=== PATIENT | female | born 1965 | race Caucasian/White ===

== ENCOUNTER 2020-10-06 13:40 | Emergency (ER) | payer OTHER ==
[~2020-10-06] VITALS: Ht 154.9 cm; Wt 60.0 kg
[2020-10-06 13:40] VITALS: BP 107/72
--- NOTE | 2020-10-06 14:26 | RAD ---
XR HAND_RIGHT 3 VIEWS 10/06/2020 2:10 PM INDICATION: Dog bite to the right and COMPARISON: None available. TECHNIQUE: 3 views of the right hand are provided. FINDINGS/ IMPRESSION: There is no acute fracture or dislocation. Joint spaces are maintained. Bone mineralization is within normal limits. Regional soft tissues are within normal limits. There is no soft tissue gas or osseou s erosion. No radiopaque foreign body. Electronically signed by: Heather Escamilla MD (10/06/2020 2:23 PM) [id number]
--- NOTE | 2020-10-06 14:31 | PHYS DOC ---
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 States she immediately went inside to wash her hand with water. Tetanus up-to-date 1 year ago. Is unsure if rabies vaccine is UTD. Reports no bizarre aggressive behavior or foaming at the mouth. Made report with animal control in ED. Review of Systems: Review of Systems: Constitutional: Denies fever or chills Eyes: Denies change in visual acuity HENT: Denies nasal congestion or sore throat Respiratory: Denies cough or shortness of breath Cardiovascular: Denies chest pain or edema GI: Denies abdominal pain, nausea, vomiting, bloody stools or diarrhea : Denies dysuria Musculoskeletal: Denies back pain or cva tenderness Integument: Denies rash Neurologic: Denies headache, focal weakness or sensory changes Endocrine: Denies polyuria or polydipsia Lymphatic: Denies swollen glands Psychiatric: Denies depression or anxiety Allergies: Allergies: Allergies Coded Allergies Type Severity Reaction Last Updated Verified No Known Drug Allergies 10/06/20 No Physical Exam: PE: Constitutional: Well developed, well nourished, no acute distress, non-toxic appearance. HENT: Normocephalic, atraumatic, Eyes: EOMI, conjunctiva normal, no discharge. Neck: Normal range of motion, supple, Cardiovascular: S1/2 present, regular rhythm Lungs & Thorax: Speaking in full sentences, bilateral equal chest rise, no tachypnea or increased work of breathing Abdomen: soft, no tenderness, Skin: Warm, dry, right third digit with subungual hematoma and superficial abrasions just superior to the nailbed, nail intact with 1/2 gel manicure torn off nail-no nail avulsion, 1 cm jagged laceration over ventral aspect of finger just distal to DIP joint, patient able to flex and extend her third digit (after digital block), normal skin turgor with right third distal phalanx contusion, cap refill less than 1 second, Extremities: no cyanosis, exposed bone Neurologic: Alert and oriented X 3, normal motor function, normal sensory function, no focal deficits noted. [] Psychologic: Affect normal, judgement normal, mood normal. [] EKG: EKG: [] Radiology/Procedures: Radiology/Procedures: IMAGING REPORT Signed PATIENT: VALE AARON V ACCOUNT: [id number] : 1965 LOCATION: ER AGE: 55 SEX: F EXAM STATUS: REG ER ORD. PHYSICIAN: KYRA KOENIG DO REASON: Dog bite to right hand, pain PROCEDURE: HAND RIGHT 3V XR HAND_RIGHT 3 VIEWS 10/06/2020 2:10 PM INDICATION: Dog bite to the right and COMPARISON: None available. TECHNIQUE: 3 views of the right hand are provided. FINDINGS/ IMPRESSION: There is no acute fracture or dislocation. Joint spaces are maintained. Bone mineralization is within normal limits. Regional soft tissues are within normal limits. There is no soft tissue gas or osseous erosion. No radiopaque foreign body. Electronically signed by: Chencho Negrete MD (10/06/2020 2:23 PM) [id number] DICTATED AND SIGNED BY: CHENCHO NEGRETE MD DATE: 10/06/201420 CC: PCP,NO; KYRA KOENIG DO ~MTH0 0 Heart Score: C/O Chest Pain: No Risk Factors: Risk Factors: DM, Current or recent (<one month) smoker, HTN, HLP, family history of CAD, obesity. Risk Scores: Score 0 - 3: 2.5% MACE over next 6 weeks - Discharge Home Score 4 - 6: 20.3% MACE over next 6 weeks - Admit for Clinical Observation Score 7 - 10: 72.7% MACE over next 6 weeks - Early Invasive Strategies Course & Med Decision Making: Course & Med Decision Making Pertinent Labs and Imaging studies reviewed. (See chart for details) Concern for dog bite to right dominant 3rd digit with subungual hematoma, released after digital block w/ 27G needle - tolerate well. Tetanus UTD. Augmentin rx. Wound care instructions given - repeat exam in 48 hours. Educated on rabies and immediate treatment for rabies if neighbors' dogs' vaccine is not UTD or dog should show signs of rabies infection. Will discharge home with strict ED return precautions were given for swelling, neurologic deficits, rash or fever. Encouraged urgent outpatient follow-up with PMD and hand surgery within 7 days with any decreased range of motion. Life-threatening processes were considered but are low suspicion at this time, given history, physical exam and ED workup. Pt was educated on all prescription medications and adverse effects. All patient's questions were answered and pt was stable at time of discharge. Life/limb-threatening differential includes but is not limited to, trauma (fracture, dislocation, laceration, compartment syndrome, tendon or ligament injury), neurovascular injury or deficit, infection (osteomyelitis, abscess, cellulitis, septic arthritis, necrotizing fasciitis), deep vein thrombosis, renal/cardiac/liver disease, medication adverse effect, lymphedema/anasarca, vascular insufficiency or malignancy, I spoken with the patient and her caregivers. I explained the patient's condition, diagnoses and treatment plan based on the information available to me at this time. I have answered the patient and her caregiver's questions and addressed any concerns. The patient and her caregivers have a good understanding of patient's diagnosis, condition and treatment plan as can be expected at this point. Vital signs have been stable. Patient's condition is stable and appropriate for discharge from the emergency department. Patient will pursue further outpatient evaluation with primary care physician or other designated or consulting physician as outlined in the discharge instructions. The patient and/or caregivers are agreeable to this plan of care and follow-up instructions have been explained in detail. The patient and/or caregivers have received these instructions in written form and have expressed an understanding of the discharge instructions. The patient and/or caregivers are aware that any significant change of condition or worsening of symptoms should prompt immediate return to this or the closest emergency department or call to 911. Eneida Disclaimer: Eneida Disclaimer: This electronic medical record was generated, in whole or in part, using a voice recognition dictation system. Departure Departure: Impression: Primary Impression: Open wound of right middle finger due to dog bite Additional Impression: Subungual hematoma of finger of right hand Disposition: 01 DC HOME SELF CARE/HOMELESS Condition: STABLE Referrals: PCP,NO (PCP) FOLLOW UP WITH FAMILY MEDICINE: [facility], [facility] [address] [address] [place] [address], Patient Instructions: Animal Bite, Rabies, Subungual Hematoma Additional Instructions: Current recommendations support rabies prophylaxis from a bite or salivary exposure of bat or mammalian carnivore, if cannot capture animal, confirm rabies vaccination or observe animal x10 days. That if animal should have rabies and patients' symptoms would present approximately 20-90 days after incident, is highly likely and would be too late for any prevention or treatment. I understand that rabies incidence varies per location but the benefits of rabies prophylaxis outweighs the risks. [facility] Appointments may be made with Migue Atkinson MD, Sourav Olsen MD, Sylvain Echevarria MD or Dario Desir MD, by calling [phone] - IF YOU SHOULD NOTICE AND RESTRICTED MOVEMENT WITHIN 7 DAYS EMERGENCY DEPARTMENT GENERAL DISCHARGE INSTRUCTIONS Thank you for coming to [facility] (ED) today and trusting us with you care. We trust that you had a positivie experience in our Emergency Department. If you wish to speak to the department management, you may call the director at [phone]. YOUR FOLLOW UP INSTRUCTIONS ARE FOLLOWS: 1. Do you have a private Doctor? If you do not have a private doctor, please a sk for a resource list of physicians or clinics that may be able to assist you with follow up care. 2. The Emergency Physician has interpreted your x-rays. The X-Ray specialist will also review them. If there is a change in the findings, you will be notified in 48 hours when at all possible. 3. A lab test or culture has been done, your results will be reviewed and you will be notified if you need a change in treatment. ADDITIONAL INSTRUCTIONS AND INFORMATION: 1. Your care today has been supervised by a physician who is specially trained in emergency care. Many problems require more than one evaluation for a complete diagnosis and treatment. We recommend that you schedule your follow up appointment as recommended to ensure complete treatment of you illness or injury. If you are unable to obtain follow up care and continue to have a problem, or if your condition worsens, we recommend that you return to the ED. 2. We are not able to safely determine your condition over the phone nor are we able to give sound medical advice over the phone. For these safety reasons, if you call for medical advice we will ask you to come to the ED for further evaluation. 3. If you have any questions regarding these discharge instructions please call the ED at [phone]. SAFETY INFORMATION: In the interest of safety, wellness, and injury prevention; we encourage you to wear your sealbelt, if you smoke; quite smoking, and we encourage family to use a protective helmet for bicycling and other sporting events that present an increased risk for head injury. IF YOUR SYMPTOMS WORSEN OR NEW SYMPTOMS DEVELOP, OR YOU HAVE CONCERNS ABOUT YOUR CONDITION; OR IF YOUR CONDITION WORSENS WHILE YOU ARE WAITING FOR YOUR FOLLOW UP APPOINTMENT; EITHER CONTACT YOUR PRIMARY CARE DOCTOR, THE PHYSICIAN WHOSE NAME AND NUMBER YOU WERE GIVEN, OR RETURN TO THE ED IMMEDIATELY. Scripts Amoxicillin/Potassium Clav (AUGMENTIN 875-125 TABLET) 1 Each Tablet 1 TAB PO BID for DOG BITE for 14 Days, #28 TAB 0 Refills Prov: KYRA KOENIG DO 10/06/20 KYRA KOENIG DO Oct 06, 2020 14:31
[2020-10-06] MEDS ORDERED: BUPIVACAINE MPF 0.25% 10 ML VIAL. SQ ONE (14:45)
[2020-10-06] MEDS ORDERED: NEOMY/BACITR/POLYMYXIN OINT PACKET. TP ONE (14:45)
[2020-10-06] MEDS ORDERED: AMOX1TAB61 PO (16:20)
== END 2020-10-06 16:34 | disposition home or self-care (01) ==
LOC: ER 13:40
DX: S61.252A Open bite of right middle finger without damage to nail, initial encounter (principal); W54.0XXA Bitten by dog, initial encounter; Y93.89 Activity, other specified; Y92.89 Other specified places as the place of occurrence of the external cause; Y99.8 Other external cause status
CPT/HCPCS: 64450; 73130; 99284; J3490

== ENCOUNTER → 2021-03-27 | Outpatient (CLI) | payer OTHER ==
[~2021-03-27] MED LIST: AMOX1TAB61 PO
--- NOTE | 2021-03-27 11:55 | RAD ---
EXAM: DUAL ENERGY X-RAY ABSORPTIOMETRY (DEXA). HISTORY: Postmenopausal screening. FINDINGS: The lowest measured T-score is -1.1 in the right femur, based on a bone mineral density of 0.819 g/cm^2. Refer to the worksheets for full detail. No comparison examinations are available. IMPRESSION: 1. Low bone mass. Bone mineral density yields a T-score between -1.0 and -2.5. Fracture risk is incre ased. 2. FRAX report: Not calculated. METHODOLOGY: Dual energy x-ray absorptiometry was performed to measure bone mineral density. The foll owing analysis is based on the 2019 Official Positions of the International Society for Clinical Dens itometry: Measurements of the hips and the average of L1-L4 are preferred. When the spine and/or hip cannot be feasibly measured or interpreted, or in the setting of hyperparathyroidism, distal radial bone minera l density may be measured. The lumbar spine T-score is based on the average bone mineral density of L1-L4. In the setting of art ifact or anatomic abnormality, some lumbar levels may be excluded, and the remaining levels used for calculation. A single lumbar level is not used for diagnosis, and if only a single level is available for assessment, another anatomic site will be used to assign a diagnosis. The hip T-score is based on the bone mineral density measurement of the femoral neck or total proxima l femur of either side, whichever is lowest. Bilateral mean values are not used for diagnosis. The forearm T-score is derived from 33% of the distal radius of the nondominant forearm. Electronically signed by: Matilde De La Torre MD (03/27/2021 11:53 AM) [id number]
--- NOTE | 2021-04-01 14:40 | RAD ---
INDICATION: 55 years of age asymptomatic female patient presents for screening mammography. TECHNIQUE: Full field craniocaudal and mediolateral oblique images of both breasts were obtained usi ng digital technique with tomosynthesis and also analyzed with computer-aided detection software. COMPARISON: No prior imaging is available for comparison. BREAST COMPOSITION: Category C: The breast tissue is heterogeneously dense, which could obscure detec tion of small masses. FINDINGS: Focal asymmetry is seen at the posterior depth of the superior left breast approximately 6 cm from th e nipple, at about the 12:00-1:00 position. In addition a separate focal asymmetry is seen in the med ial, slightly inferior left breast approximately 6 cm from nipple. No suspicious right breast mass, microcalcification or architectural distortion. The visualized axillae are unremarkable. IMPRESSION: Left breast focal asymmetries, findings for which additional imaging is advised. RECOMMENDATION: The patient will be contacted to return for additional imaging and a supplemental rep ort will follow. Spot compression views and ultrasound of the left breast is recommended. BIRADS 0: INCOMPLETE - NEED ADDITIONAL IMAGING EVALUATION AND/OR PRIOR MAMMOGRAMS FOR COMPARISON. This study was interpreted with the benefit of Computerized Aided Detection (CAD). ?Your patient's mammogram demonstrates that she has dense breast tissue (breast density category C or D), which could hide abnormalities, and if she has other risk factors for breast cancer that have be en identified, she might benefit from supplemental screening tests that may be suggested by you as he r ordering physician. Dense breast tissue, in and of itself, is a relatively common condition. Theref ore, this information is not provided to cause undue concern, but rather to raise your awareness and to promote discussion with your patient regarding the presence of other risk factors, in addition to dense breast tissue. Your patient's mammography results will be sent to her. Patient information is entered into the reminder system with a target due date for the next screening mammogram. Mammography is the most sensitive method for finding small breast cancers, but it does not detect the m all and is not a substitute for careful clinical examination. A negative mammogram does not negate a clinically suspicious finding and should not result in delay in biopsying a clinically suspicious a bnormality. "Our facility is accredited by the [employer] Mammography Program." Electronically signed by: Camden Bryan MD (04/01/2021 2:38 PM) [facility]
== END ==
LOC: MAMMO 09:15
PROVIDERS: ATTEND Physician Assistant Medical
DX: Z12.31 Encounter for screening mammogram for malignant neoplasm of breast (principal); M85.88 Other specified disorders of bone density and structure, other site; Z78.0 Asymptomatic menopausal state
CPT/HCPCS: 77063; 77067; 77080

== ENCOUNTER → 2021-04-12 | Outpatient (CLI) | payer OTHER ==
--- NOTE | 2021-04-12 18:53 | RAD ---
EXAMINATION: US BREAST LT, MG DIAGNOSTICUNILAT MAMMO History: Recalled for left breast asymmetries. History of breast implant removal Comparison: Screening mammogram 03/27/2021. Technique: Left breast digital diagnostic mammogram views were obtained. CAD was utilized. Left gemini st ultrasound was also performed. Findings: Breast Tissue Density B : There are scattered areas of fibroglandular density. The focal asymmetries in the left breast persists. One of these is a 1 cm dense asymmetry at the far posterior depth at approximately 6.5 cm posterior to the nipple and localizes to 6:00. The other is a 4 mm dense asymmetry in the medial breast also persists and may be around 8:00. There is an addition al 1.1 cm fat-containing mass in the upper outer left breast at 2.5 cm posterior to the nipple that i s consistent with an oil cysts. Ultrasound of the left breast was performed and areas of concern. At 6:00, 7 cm from the nipple, there is a mass measuring 1.7 x 0.7 x 0.6 cm. This is hyperechoic ambrose pherally with a hypoechoic component centrally, parallel orientation with lobulated margins. No poste rior acoustic shadowing or vascularity. At 2:00, 3 cm from the nipple, there is a mass measuring 1.0 x 1.1 x 0.8 cm. This is peripherally hyp erechoic and centrally hypoechoic with shadowing along the rim of the lesion. This is parallel in shashank entation with no internal vascularity. There is no abnormality seen in the medial left breast. No axillary lymphadenopathy. IMPRESSION: There are 2 solid masses in the left breast. Both are hyperechoic peripherally and hypoechoic central ly. One of these likely corresponds with an oil cyst seen on mammogram. The other corresponds with a more dense asymmetry seen far posteriorly on cc view. This may be fat necrosis, however recommend ult rasound guided biopsy to confirm. If the patient declines biopsy, a six-month follow-up mammogram and ultrasound of the left breast could be obtained to ensure stability. BI-RADS Category 4-suspicious (4A-low suspicion for malignancy), biopsy should be considered. The images were reviewed with computer aided detection. Patient information is entered into the reminder system with a target due date for the next screening mammogram. Mammography is the most sensitive method for finding small breast cancers, but it does not detect the m all and is not a substitute for careful clinical examination. A negative mammogram does not negate a clinically suspicious finding and should not result in delay in biopsying a clinically suspicious a bnormality. "Our facility is accredited by the [employer] Mammography Program." A message with results was left at the ordering physician's office at approximately 3:00 PM on . Electronically signed by: Jo Ann Dias MD (04/12/2021 6:50 PM) [id number]
== END ==
LOC: MAMMO 09:22
PROVIDERS: ATTEND Physician Assistant Medical
DX: N63.21 Unspecified lump in the left breast, upper outer quadrant (principal); N63.42 Unspecified lump in left breast, subareolar; R92.2 Inconclusive mammogram
CPT/HCPCS: 76641; 77065